=== PATIENT | male | born 1970 | race Caucasian/White ===

== ENCOUNTER 2023-02-09 17:40 | Emergency (ER) | payer MEDICAID ==
[~2023-02-09] VITALS: Ht 162.6 cm; Wt 76.0 kg
[2023-02-09] MEDS ORDERED: ACETAMINOPHEN 325MG TABLET PO ONE (18:45)
[2023-02-09] MEDS ORDERED: IBUPROFEN 400MG TABLET PO ONE (18:45)
[2023-02-09 19:17] LABS: BASOPHILS % 0.2 % (0.0-2.0); EOSINOPHILS % 0.9 % (0.0-5.0); HEMATOCRIT. 35.4 % (42.0-52.0); HEMOGLOBIN. 11.2 g/dL (14.0-18.0); LYMPHOCYTES % 27.2 % (20.0-50.0); MEAN CORPUSCULAR HEMOGLOBIN 25.8 pg (28.0-32.0); MEAN CORPUSCULAR VOLUME 81.5 fL (80.0-94.0); MEAN PLATELET VOLUME 8.3 fl (7.4-10.4); MONOCYTES % 7.7 % (2.0-8.0); PLATELET 146 x1000/uL (130-400); RED BLOOD CELL COUNT 4.34 mill/uL (4.7-6.1); RED CELL DISTRIBUTION WIDTH 20.3 % (11.6-14.6)
[2023-02-09 19:27] LABS: CHLORIDE 103 mEq/L (98-107)
[2023-02-09] MEDS ORDERED: LIDOCAINE 5% PATCH TOP SCH (19:45)
[2023-02-09] MEDS ORDERED: ASPIRIN 325MG EC TABLET PO ONE (19:45)
[2023-02-09] MEDS ORDERED: SODIUM CHLORIDE 0.9% 1,000 ML IV ONE (19:45)
[2023-02-09] MEDS ORDERED: INSULIN REGULAR (HUMULIN R) 300UNITS/3ML VIAL IV ONE (21:00)
[2023-02-09] MEDS ORDERED: IBUP-2028 MT (23:16)
[2023-02-09] MEDS ORDERED: ACET-2708 MT (23:16)
[2023-02-09 23:25] VITALS: BP 120/72
== END 2023-02-09 23:39 | disposition home or self-care (01) ==
LOC: ER 17:40
DX: R07.89 Other chest pain (principal); R06.02 Shortness of breath; E11.9 Type 2 diabetes mellitus without complications; I10 Essential (primary) hypertension
CPT/HCPCS: 36415; 71045; 71100; 80053; 82962; 84484; 85025; 93005; 96361; 96374; 99285; J1815; J7030

== ENCOUNTER 2024-03-03 20:23 | Inpatient (IN) | payer MEDICAID, OTHER ==
[~2024-03-03] VITALS: Ht 162.6 cm; Wt 88.0 kg
[~2024-03-03 20:23] MED LIST: ACET-2708 MT; IBUP-2028 MT
[2024-03-03 20:28] VITALS: O2SAT 100
[2024-03-03] MEDS ORDERED: PIPERACILLIN/TAZO 3.375G/50ML 50 ML IV ONE (21:15)
[2024-03-03] MEDS ORDERED: PANTOPRAZOLE 80 MG in SODIUM CHLORIDE 0.9% 100 ML IV SCH (21:15)
[2024-03-03] MEDS ORDERED: OCTREOTIDE 1,000 MCG in SODIUM CHLORIDE 0.9% 100 ML IV ONE (21:15)
[2024-03-03] MEDS: ONDANSETRON HCL 4MG/2ML INJ IV STA (21:31)
[2024-03-03 21:38] LABS: BASOPHILS % 0.2 % (0.0-2.0); DIFFERENTIAL COMMENT 0; EOSINOPHILS % 0.2 % (0.0-5.0); LYMPHOCYTES % 17.5 % (20.0-50.0); MEAN CORPUSCULAR HEMOGLOBIN 35.4 pg (28.0-32.0); MEAN CORPUSCULAR VOLUME 107.1 fL (80.0-94.0); MEAN PLATELET VOLUME 9.5 fl (7.4-10.4); MONOCYTES % 5.9 % (2.0-8.0); NEUTROPHILS % 76.2 % (40.0-76.0); PLATELET 181 x1000/uL (130-400); RED BLOOD CELL COUNT 1.69 mill/uL (4.7-6.1); RED CELL DISTRIBUTION WIDTH 15.6 % (11.6-14.6); WHITE BLOOD COUNT 11.8 x1000/uL (4.5-11.0)
[2024-03-03 21:42] LABS: CHLORIDE 106 mEq/L (98-107); POTASSIUM 4.5 mEq/L (3.5-5.1); SODIUM 134 mEq/L (136-145)
[2024-03-03 21:43] LABS: CALCIUM 8.9 mg/dL (8.7-10.4); CARBON DIOXIDE 16 mEq/L (21-32)
[2024-03-03] MEDS: SODIUM CHLORIDE 0.9% 1000ML BAG (SEPSIS BOLUS) IV ONE (21:44)
[2024-03-03 21:48] LABS: CREATININE 0.9 mg/dL (0.6-1.3); UREA NITROGEN BLOOD 34 mg/dL (9-23)
[2024-03-03 21:50] LABS: ALANINE AMINOTRANSFERASE 20 IU/L (10-49); ALBUMIN 4.1 g/dL (3.2-4.8); ASPARTATE AMINOTRANSFERASE 25 IU/L (<34); BILIRUBIN DIRECT 0.2 mg/dL (<=3.0); BILIRUBIN TOTAL 0.5 mg/dL (0.1-1.0); GLUCOSE 280 mg/dL (70-105); PROTEIN TOTAL 6.6 g/dL (6.0-8.3)
[2024-03-03 21:52] LABS: HEMATOCRIT. 18.1 % (42.0-52.0)
[2024-03-03 22:05] LABS: PARTIAL THROMBOPLASTIN TIME 22.1 sec (23.4-31.0); PROTHROMBIN TIME 11.4 sec (9.6-11.0)
[2024-03-03 22:06] LABS: ETHANOL BLOOD < 10 mg/dL (<10); TROPONIN I HIGH SENSITIVITY < 4 ng/L (3.0-53)
[2024-03-03 22:10] LABS: LACTIC ACID 5.1 mmol/L (0.4-2.0)
[2024-03-03] MEDS: PANTOPRAZOLE 80 MG in SODIUM CHLORIDE 0.9% 100 ML IV SCH (22:20)
[2024-03-03] MEDS: OCTREOTIDE 1,000 MCG in SODIUM CHLORIDE 0.9% 100 ML IV SCH (22:20)
[2024-03-03] MEDS: PANTOPRAZOLE SODIUM 40 MG/VIAL IV ONE (22:32)
[2024-03-03 22:33] LABS: BG BASE EXCESS -5.8 mmol/L (-2.0-2.0); BG CARBOXYHEMOGLOBIN 0.5 % (0.5-1.5); BG DEOXYHEMOGLOBIN 3.7 % (0.0-5.0); BG HCO3 ACT 17.2 mmol/L (22.0-26.0); BG METHEMOGLOBIN 0.6 % (0.0-1.5); BG OXYGEN SATURATION 96.3 % (92.0-98.5); BG OXYHEMOGLOBIN 95.2 % (94.0-97.0); BG PCO2 25.2 mmHg (35.0-45.0); BG PH 7.452 (7.350-7.450); BG PO2 80.2 mmHg (75.0-100.0); BG SAMPLE SITE RIGHT RADIAL; BG TOTAL HEMOGLOBIN 8.1 g/dL (12.0-18.0); BG VENT MODE ROOM AIR
[2024-03-03] MEDS: PIPERACILLIN/TAZO 3.375G/50ML 50 ML IV NR (22:46)
[2024-03-04] VITALS (9 sets, daily range): BP systolic 104–133; BP diastolic 64–75; PULSE 70–85; RESP 14–21; TEMP 97.8–98.9
[2024-03-04 00:16] LABS: CLARITY URINE CLEAR (CLEAR); COLOR URINE YELLOW (YELLOW); GLUCOSE URINE 3+ (NEGATIVE); KETONES URINE 1+ (NEGATIVE); LEUKOCYTE ESTERASE URINE NEGATIVE (NEGATIVE); NITRITE URINE NEGATIVE (NEGATIVE); OCCULT BLOOD URINE NEGATIVE (NEGATIVE); PH URINE 5.5 (4.5-8.0); PROTEIN URINE NEGATIVE (NEGATIVE); SPECIFIC GRAVITY URINE 1.019 (1.005-1.030); UROBILINOGEN URINE 0.2 E.U./dL (0.2-1.0)
[2024-03-04 00:23] LABS: *AMPHETAMINES SCREEN URINE NEGATIVE (NEGATIVE); *BARBITURATES SCREEN URINE NEGATIVE (NEGATIVE); *BENZODIAZEPINES SCREEN URINE NEGATIVE (NEGATIVE); *COCAINE SCREEN URINE NEGATIVE (NEGATIVE); CANNABINOID URINE SCREEN NEGATIVE (NEGATIVE); ECSTASY MDMA SCREEN URINE NEGATIVE (NEGATIVE); METHADONE URINE SCREEN NEGATIVE (NEGATIVE); OPIATES URINE SCREEN NEGATIVE (NEGATIVE); PHENCYCLIDINE URINE SCREEN NEGATIVE (NEGATIVE)
[2024-03-04 00:28] LABS: BACTERIA URINE NONE SEEN; RBC URINE 0-2 /hpf (0-2); SQUAMOUS EPITHELIAL CELL URINE FEW /lpf (RARE/1+); WBC URINE 0-2 /hpf (0-2)
[2024-03-04] MEDS: ONDANSETRON HCL 4MG/2ML INJ IV ONE (02:38)
[2024-03-04 02:52] LABS: BASOPHILS % 0.4 % (0.0-2.0); EOSINOPHILS % 0.3 % (0.0-5.0); HEMATOCRIT. 29.4 % (42.0-52.0); HEMOGLOBIN. 10.1 g/dL (14.0-18.0); LYMPHOCYTES % 17.8 % (20.0-50.0); MEAN CORPUSCULAR HEMOGLOBIN 31.2 pg (28.0-32.0); MEAN CORPUSCULAR HGB CONC 34.3 g/dL (31.0-37.0); MEAN CORPUSCULAR VOLUME 91.1 fL (80.0-94.0); MEAN PLATELET VOLUME 8.7 fl (7.4-10.4); NEUTROPHILS % 73.5 % (40.0-76.0); PLATELET 87 x1000/uL (130-400); RED BLOOD CELL COUNT 3.23 mill/uL (4.7-6.1); RED CELL DISTRIBUTION WIDTH 20.3 % (11.6-14.6); WHITE BLOOD COUNT 9.7 x1000/uL (4.5-11.0)
[2024-03-04] MEDS: DEXTROSE 50% WATER 50ML SYRINGE IV NR (04:23)
[2024-03-04] MEDS: PANTOPRAZOLE SODIUM 40 MG/VIAL IV SCH (09:47)
[2024-03-04] MEDS ORDERED: ONDANSETRON HCL 4MG/2ML INJ IV PRN ×2 (11:00)
[2024-03-04] MEDS ORDERED: PNEUMOCOCCAL VACCINE IM SCH (12:00)
[2024-03-04 12:11] LABS: BASOPHILS % 0.4 % (0.0-2.0); EOSINOPHILS % 1.1 % (0.0-5.0); HEMATOCRIT. 27.9 % (42.0-52.0); HEMOGLOBIN. 9.7 g/dL (14.0-18.0); LYMPHOCYTES % 19.5 % (20.0-50.0); MEAN CORPUSCULAR HEMOGLOBIN 31.5 pg (28.0-32.0); MEAN CORPUSCULAR HGB CONC 34.7 g/dL (31.0-37.0); MEAN CORPUSCULAR VOLUME 90.7 fL (80.0-94.0); MEAN PLATELET VOLUME 8.8 fl (7.4-10.4); MONOCYTES % 8.7 % (2.0-8.0); NEUTROPHILS % 70.3 % (40.0-76.0); PLATELET 90 x1000/uL (130-400); RED BLOOD CELL COUNT 3.08 mill/uL (4.7-6.1); RED CELL DISTRIBUTION WIDTH 20.3 % (11.6-14.6); WHITE BLOOD COUNT 8.7 x1000/uL (4.5-11.0)
[2024-03-04 12:25] LABS: IRON 83 ug/dL (65-175)
[2024-03-04 12:27] LABS: TOTAL IRON BINDING CAPACITY 324 ug/dl (250-425)
[2024-03-04 12:32] LABS: HEPATITIS C AB NON REACTIVE (Neg) (Negative)
[2024-03-04 12:36] LABS: HEPATITIS B SURFACE ANTIGEN NEGATIVE (Negative)
[2024-03-04 12:41] LABS: FOLIC ACID (FOLATE) SERUM 17.07 ng/mL (>5.38); VITAMIN B12 SERUM 691 pg/mL (211-911)
[2024-03-04 12:45] LABS: FERRITIN 27 ng/mL (22-322)
[2024-03-04] MEDS: TAMSULOSIN HCL 0.4MG SR CAPSULE PO SCH (12:46)
[2024-03-04] MEDS: DEXT 5%/0.9% NACL 1,000 ML IV SCH (12:47)
[2024-03-04] MEDS: OCTREOTIDE 1,000 MCG in SODIUM CHLORIDE 0.9% 98 ML IV SCH (14:07)
[2024-03-04] MEDS ORDERED: LISI40TA13 MT (21:57)
[2024-03-04] MEDS ORDERED: DAPA10TA PO (21:57)
[2024-03-04] MEDS ORDERED: METO-539 MT (21:58)
[2024-03-04] MEDS ORDERED: GABA-534 MT (21:59)
[2024-03-04] MEDS ORDERED: FERR324T4 MT (22:00)
[2024-03-04] MEDS ORDERED: INSU3INS8 SUBCUT (22:02)
[2024-03-04] MEDS ORDERED: INSU100I22 SQ (22:03)
[2024-03-04] MEDS ORDERED: ASCO500C15 MT (22:04)
[2024-03-04] MEDS ORDERED: DEXTROSE 50% WATER 50ML SYRINGE IV PRN (22:15)
[2024-03-04] MEDS: BLOOD SUGAR DIAGNOSTIC STRIP TEST SCH (22:22)
[2024-03-04] MEDS: INSULIN LISPRO 100 UNITS/ML SUBCUT SCH (22:38)
[2024-03-05] VITALS (10 sets, daily range): BP systolic 110–136; BP diastolic 62–75; PULSE 68–85; RESP 14–20; TEMP 97.8–98
[2024-03-05 03:01] LABS: CHLORIDE 110 mEq/L (98-107); SODIUM 137 mEq/L (136-145)
[2024-03-05 03:02] LABS: CALCIUM 8.2 mg/dL (8.7-10.4); CARBON DIOXIDE 20 mEq/L (21-32)
[2024-03-05 03:03] LABS: BASOPHILS % 0.5 % (0.0-2.0); EOSINOPHILS % 2.6 % (0.0-5.0); HEMATOCRIT. 29.7 % (42.0-52.0); HEMOGLOBIN. 10.2 g/dL (14.0-18.0); LYMPHOCYTES % 19.6 % (20.0-50.0); MEAN CORPUSCULAR HEMOGLOBIN 31.4 pg (28.0-32.0); MEAN CORPUSCULAR HGB CONC 34.5 g/dL (31.0-37.0); MEAN CORPUSCULAR VOLUME 91.1 fL (80.0-94.0); MEAN PLATELET VOLUME 8.4 fl (7.4-10.4); MONOCYTES % 6.4 % (2.0-8.0); NEUTROPHILS % 70.9 % (40.0-76.0); PLATELET 104 x1000/uL (130-400); RED BLOOD CELL COUNT 3.26 mill/uL (4.7-6.1); RED CELL DISTRIBUTION WIDTH 20.9 % (11.6-14.6); WHITE BLOOD COUNT 7.9 x1000/uL (4.5-11.0)
[2024-03-05 03:07] LABS: CREATININE 0.7 mg/dL (0.6-1.3); GLUCOSE 206 mg/dL (70-105); UREA NITROGEN BLOOD 14 mg/dL (9-23)
[2024-03-05 03:10] LABS: PROTHROMBIN TIME 11.5 sec (9.6-11.0)
[2024-03-05] MEDS: GABAPENTIN 400MG CAPSULE PO SCH (05:28)
[2024-03-05] MEDS: METOPROLOL TARTRATE 50MG TABLET PO SCH (08:38)
[2024-03-05] MEDS: INSULIN GLARGINE 100 UNITS/ML SUBCUT SCH (10:24)
[2024-03-05] MEDS ORDERED: LIDOCAINE HCL 1% 10 MG/ML 10ML VIAL ONE (11:05)
[2024-03-05] MEDS ORDERED: PROPOFOL 200MG/20ML VIAL IV ONE ×2 (11:06→11:30)
[2024-03-05] MEDS ORDERED: ONDANSETRON HCL 4MG/2ML INJ IV PRN (11:45)
[2024-03-05] MEDS ORDERED: FENTANYL CITRATE/PF 50MCG/ML 2ML VIAL IV PRN (11:45)
[2024-03-05 17:20] LABS: BASOPHILS % 0.5 % (0.0-2.0); EOSINOPHILS % 2.4 % (0.0-5.0); HEMATOCRIT. 29.6 % (42.0-52.0); HEMOGLOBIN. 10.1 g/dL (14.0-18.0); MEAN CORPUSCULAR HEMOGLOBIN 31.9 pg (28.0-32.0); MEAN CORPUSCULAR HGB CONC 34.3 g/dL (31.0-37.0); MEAN PLATELET VOLUME 8.4 fl (7.4-10.4); MONOCYTES % 5.2 % (2.0-8.0); NEUTROPHILS % 78.9 % (40.0-76.0); PLATELET 93 x1000/uL (130-400); RED BLOOD CELL COUNT 3.18 mill/uL (4.7-6.1); RED CELL DISTRIBUTION WIDTH 20.4 % (11.6-14.6); WHITE BLOOD COUNT 6.7 x1000/uL (4.5-11.0)
[2024-03-05] MEDS ORDERED: PROP10TA10 MT (22:38)
[2024-03-06] VITALS: BP 126/74; PULSE 85; RESP 20; TEMP 98.8
[2024-03-06 04:00] VITALS: BP 132/78; PULSE 84; RESP 18
[2024-03-06 07:28] LABS: BASOPHILS % 0.4 % (0.0-2.0); EOSINOPHILS % 2.4 % (0.0-5.0); LYMPHOCYTES % 15.4 % (20.0-50.0); MEAN CORPUSCULAR HEMOGLOBIN 31.7 pg (28.0-32.0); MEAN CORPUSCULAR HGB CONC 34.5 g/dL (31.0-37.0); MEAN PLATELET VOLUME 8.1 fl (7.4-10.4); MONOCYTES % 6.6 % (2.0-8.0); NEUTROPHILS % 75.2 % (40.0-76.0); PLATELET 103 x1000/uL (130-400); RED BLOOD CELL COUNT 3.15 mill/uL (4.7-6.1); RED CELL DISTRIBUTION WIDTH 20.5 % (11.6-14.6)
[2024-03-06 07:57] LABS: CALCIUM 8.1 mg/dL (8.7-10.4); CARBON DIOXIDE 21 mEq/L (21-32); CHLORIDE 109 mEq/L (98-107); POTASSIUM 3.5 mEq/L (3.5-5.1); SODIUM 138 mEq/L (136-145)
[2024-03-06 08:00] VITALS: BP 108/65; PULSE 62; RESP 18; TEMP 98.1
[2024-03-06 08:02] LABS: CREATININE 0.7 mg/dL (0.6-1.3); GLUCOSE 73 mg/dL (70-105); UREA NITROGEN BLOOD 8 mg/dL (9-23)
[2024-03-06 11:02] VITALS: BP 107/65; PULSE 68; TEMP 97.8
== END 2024-03-06 15:53 | disposition home or self-care (01) ==
LOC: ER 20:23 → 5EST 23:04 → EDBEDREQ 23:09 → EDBEDREQSVC 03-04 08:11
PROVIDERS: ADMIT Internal Medicine; ATTEND Internal Medicine
PROC: 30233N1 Transfusion of Nonautologous Red Blood Cells into Peripheral Vein, Percutaneous Approach (ICD-10-PCS; principal; 2024-03-03)
PROC: 06L38CZ Occlusion of Esophageal Vein with Extraluminal Device, Via Natural or Artificial Opening Endoscopic (ICD-10-PCS; 2024-03-05)
DX: K74.60 Unspecified cirrhosis of liver (principal); I85.11 Secondary esophageal varices with bleeding; D69.6 Thrombocytopenia, unspecified; K76.6 Portal hypertension; K92.0 Hematemesis; E11.65 Type 2 diabetes mellitus with hyperglycemia; E66.9 Obesity, unspecified; I10 Essential (primary) hypertension; K76.0 Fatty (change of) liver, not elsewhere classified; K31.89 Other diseases of stomach and duodenum; E78.5 Hyperlipidemia, unspecified; D50.0 Iron deficiency anemia secondary to blood loss (chronic); Z68.33 Body mass index [BMI] 33.0-33.9, adult; Z87.891 Personal history of nicotine dependence; Z79.82 Long term (current) use of aspirin; Z79.4 Long term (current) use of insulin
CPT/HCPCS: 36415; 36600; 71045; 76700; 80048; 80076; 80305; 80320; 81003; 82375; 82607; 82728; 82746; 82805; 82962; 83036; 83540; 83550; 83605; 84484; 85025; 85044; 86705; 86850; 86900; 86920; 87340; 90732; 93005; 99291; C9113; J1815; J2354; J2405; J2543; J2704; J3490; J7030; J7042; J7050; P9016; G0480

== ENCOUNTER 2024-03-08 10:12 | Emergency (ER) | payer MEDICAID, OTHER ==
[~2024-03-08] VITALS: Ht 162.6 cm; Wt 75.0 kg
[~2024-03-08 10:12] MED LIST changes: +ASCO500C15 MT; +DAPA10TA PO; +FERR324T4 MT; +GABA-534 MT; +INSU100I22 SQ; +INSU3INS8 SUBCUT; +METO-539 MT; +PROP10TA10 MT
[2024-03-08 10:19] VITALS: O2SAT 100
[2024-03-08 10:38] LABS: BASOPHILS % 0.2 % (0.0-2.0); EOSINOPHILS % 1.6 % (0.0-5.0); HEMATOCRIT. 29.1 % (42.0-52.0); HEMOGLOBIN. 10.1 g/dL (14.0-18.0); LYMPHOCYTES % 11.7 % (20.0-50.0); MEAN CORPUSCULAR HEMOGLOBIN 31.9 pg (28.0-32.0); MEAN CORPUSCULAR HGB CONC 34.7 g/dL (31.0-37.0); MEAN CORPUSCULAR VOLUME 91.8 fL (80.0-94.0); MEAN PLATELET VOLUME 8.4 fl (7.4-10.4); MONOCYTES % 6.4 % (2.0-8.0); NEUTROPHILS % 80.1 % (40.0-76.0); PLATELET 111 x1000/uL (130-400); RED BLOOD CELL COUNT 3.17 mill/uL (4.7-6.1); RED CELL DISTRIBUTION WIDTH 19.5 % (11.6-14.6); WHITE BLOOD COUNT 9.6 x1000/uL (4.5-11.0)
[2024-03-08 10:39] LABS: CHLORIDE 105 mEq/L (98-107); POTASSIUM 3.4 mEq/L (3.5-5.1); SODIUM 134 mEq/L (136-145)
[2024-03-08 10:40] LABS: CARBON DIOXIDE 22 mEq/L (21-32)
[2024-03-08 10:41] LABS: CALCIUM 8.4 mg/dL (8.7-10.4)
[2024-03-08 10:45] LABS: CREATININE 0.6 mg/dL (0.6-1.3)
[2024-03-08 10:46] LABS: GLUCOSE 180 mg/dL (70-105); UREA NITROGEN BLOOD 6 mg/dL (9-23)
[2024-03-08 10:47] LABS: ALANINE AMINOTRANSFERASE 17 IU/L (10-49); ALBUMIN 3.6 g/dL (3.2-4.8); ASPARTATE AMINOTRANSFERASE 19 IU/L (<34)
[2024-03-08 10:48] LABS: BILIRUBIN DIRECT 0.5 mg/dL (<=3.0); BILIRUBIN TOTAL 1.1 mg/dL (0.1-1.0); PROTEIN TOTAL 6.4 g/dL (6.0-8.3)
[2024-03-08] MEDS ORDERED: MAGNESIUM/ALUMINUM HYDROXIDE/SIMETHICONE 30ML UDC PO STA (12:29)
[2024-03-08] MEDS ORDERED: FAMOTIDINE 20MG TABLET PO ONE (12:30)
[2024-03-08 13:26] LABS: TROPONIN I HIGH SENSITIVITY < 4 ng/L (3.0-53)
[2024-03-08] MEDS: VISCOUS LIDOCAINE 2% 15 ML UDC PO NR (14:59)
[2024-03-08] MEDS: FAMOTIDINE 20MG TABLET PO NR (14:59)
[2024-03-08] MEDS: MAGNESIUM/ALUMINUM HYDROXIDE/SIMETHICONE 30ML UDC PO NR (14:59)
[2024-03-08] MEDS ORDERED: FAMO-135 MT (16:38)
[2024-03-08] MEDS ORDERED: MAG-55 MT (16:38)
[2024-03-08] MEDS: POTASSIUM CHLORIDE 20MEQ/PACKET PO ONE (16:54)
[2024-03-08 16:57] VITALS: BP 122/66; PULSE 94; RESP 18; TEMP 98.1
== END 2024-03-08 16:59 | disposition home or self-care (01) ==
LOC: ER 10:12
DX: K27.9 Peptic ulcer, site unspecified, unspecified as acute or chronic, without hemorrhage or perforation (principal); E11.9 Type 2 diabetes mellitus without complications; E78.00 Pure hypercholesterolemia, unspecified; I10 Essential (primary) hypertension; Z79.899 Other long term (current) drug therapy
CPT/HCPCS: 36415; 74176; 76705; 80048; 80076; 84484; 85025; 86850; 86900; 93005; 99284